=== PATIENT | male | born 1960 | race Caucasian/White ===

== ENCOUNTER 2016-07-01 11:41 | Emergency (ER) | payer MEDICARE ==
[2016-07-01] MEDS ORDERED: DEXAMETHASONE 4 MG TABLET ONE (12:30)
== END 2016-07-01 12:43 | disposition home or self-care (01) ==
LOC: ED 11:41
DX: R21 Rash and other nonspecific skin eruption (principal); R59.1 Generalized enlarged lymph nodes; J44.9 Chronic obstructive pulmonary disease, unspecified; I25.2 Old myocardial infarction
CPT/HCPCS: 99283 ×2; A9270